=== PATIENT | male | born 1945 | race Caucasian/White ===

== ENCOUNTER 2019-04-01 17:42 | Emergency (ER) | payer OTHER ==
[~2019-04-01] VITALS: Ht 177.8 cm; Wt 80.7 kg
[2019-04-01] MEDS ORDERED: LIPITOR40 M1 PO (17:59)
== END 2019-04-01 19:16 | disposition home or self-care (01) ==
LOC: ER 17:42
DX: M54.32 Sciatica, left side (principal)

== ENCOUNTER 2019-05-03 12:04 | Outpatient (CLI) | payer OTHER ==
[~2019-05-03 12:04] MED LIST: LIPITOR40 M1 PO
== END 2019-05-03 12:09 | disposition home or self-care (01) ==
LOC: RAD 12:04
DX: M25.572 Pain in left ankle and joints of left foot (principal)

== ENCOUNTER 2020-02-18 09:16 | Emergency (ER) | payer OTHER ==
[~2020-02-18] VITALS: Ht 177.8 cm; Wt 81.6 kg
[2020-02-18] MEDS ORDERED: TAMS0.4C PO (09:48)
== END 2020-02-18 12:52 | disposition home or self-care (01) ==
LOC: ER 09:16
DX: R21 Rash and other nonspecific skin eruption (principal); F06.4 Anxiety disorder due to known physiological condition

== ENCOUNTER 2020-05-30 07:34 | Outpatient (CLI) | payer OTHER ==
[~2020-05-30 07:34] MED LIST changes: +TAMS0.4C PO
== END 2020-05-30 07:44 | disposition home or self-care (01) ==
LOC: RAD 07:34
PROVIDERS: ATTEND Internal Medicine
DX: R07.89 Other chest pain (principal); R25.2 Cramp and spasm; E78.2 Mixed hyperlipidemia; M79.672 Pain in left foot; M79.671 Pain in right foot

== ENCOUNTER 2020-07-03 09:17 | Outpatient (CLI) | payer OTHER | END 2020-07-03 09:20 | disposition home or self-care (01) | LOC: NUCLEAR 09:17 | PROVIDERS: ATTEND Internal Medicine | DX: I21.09 ST elevation (STEMI) myocardial infarction involving other coronary artery of anterior wall (principal) ==

== ENCOUNTER 2020-08-02 12:28 | Outpatient (CLI) | payer OTHER | END 2020-08-02 12:34 | disposition home or self-care (01) | LOC: RAD 12:28 → MAMO-SONO 13:30 | PROVIDERS: ATTEND Urology | DX: R31.21 Asymptomatic microscopic hematuria (principal) ==

== ENCOUNTER 2021-11-19 08:43 | Outpatient (CLI) | payer OTHER | END 2021-11-19 08:58 | disposition home or self-care (01) | LOC: MRI 08:43 | PROVIDERS: ATTEND Psychiatry & Neurology Neurology | DX: R56.9 Unspecified convulsions (principal) | CPT/HCPCS: 70546; 70553; Q9965; 70545 ==

== ENCOUNTER 2021-11-19 09:22 | Outpatient (CLI) | payer OTHER | END 2021-11-19 09:29 | disposition home or self-care (01) | LOC: LAB 09:22 | PROVIDERS: ATTEND Radiology Diagnostic Radiology | DX: R56.9 Unspecified convulsions (principal) ==

== ENCOUNTER 2021-11-22 07:40 | Outpatient (CLI) | payer OTHER | END 2021-11-22 07:41 | disposition home or self-care (01) | LOC: NUCLEAR 07:40 | PROVIDERS: ATTEND Psychiatry & Neurology Neurology | DX: R56.9 Unspecified convulsions (principal); Z88.6 Allergy status to analgesic agent ==